=== PATIENT | female | born 1965 | race Caucasian/White ===

== ENCOUNTER → 2017-01-02 | Outpatient (CLI) | payer OTHER ==
[~2017-01-02] MED LIST: B-CO1CAP5 PO; CALCTAB5 PO; CHOL200027 PO; METH500T37 PO; MISCCAP80 PO; MULT-513 PO; MULT-884 PO; NORE1TAB68 PO; NRN/300 PO; [UNRECOGNIZED DRUG - CODE] PO
--- NOTE | 2017-01-02 08:21 | MAMMOGRAPHY REPORT ---
BILATERAL DIGITAL SCREENING MAMMOGRAM TOMOSYNTHESIS WITH CAD: 01/02/2017 CLINICAL HISTORY: Routine screening. TECHNIQUE: Breast tomosynthesis in addition to standard 2D mammography was performed. Current study was also evaluated with a Computer Aided Detection (CAD) system. COMPARISON: Comparison is made to exams dated: 12/29/2015 mammogram, 12/23/2014 mammogram - [facility], 05/29/2013 mammogram, 11/23/2010 mammogram, and 09/26/2009 mammogram. BREAST COMPOSITION: There are scattered areas of fibroglandular density in both breasts. FINDINGS: No suspicious masses, calcifications, or areas of architectural distortion are noted in ei ther breast. There has been no significant interval change compared to prior exams. Scattered bilater al benign-appearing calcifications are not significantly changed. A linear scar marker denotes a sca r on the left superior breast. IMPRESSION: ACR BI-RADS CATEGORY 2: BENIGN There is no mammographic evidence of malignancy. A 1 year screening mammogram is recommended. The pa tient will receive written notification of the results. Approximately 10% of breast cancers are not detected with mammography. A negative mammographic report should not delay biopsy if a clinically suggestive mass is present. Liana Tellez M.D. ah/:01/02/2017 07:50:20 Sander Machine: Umair HILL)(Tracey), [facility] letter sent: Normal 1/2 BI-RADS Code: ACR BI-RADS Category 2: Benign
== END | disposition home or self-care (01) ==
LOC: C.MAMM 07:08
PROVIDERS: ATTEND Internal Medicine
DX: Z12.31 Encounter for screening mammogram for malignant neoplasm of breast (principal)

== ENCOUNTER → 2017-05-29 | Outpatient (CLI) | payer OTHER | END | disposition home or self-care (01) | LOC: C.PAPS 10:36 | PROVIDERS: ATTEND Physician Assistant Medical | DX: Z00.00 Encounter for general adult medical examination without abnormal findings (principal); Z12.4 Encounter for screening for malignant neoplasm of cervix ==

== ENCOUNTER → 2017-05-31 | Outpatient (CLI) | payer OTHER ==
--- NOTE | 2017-05-31 08:53 | DIAGNOSTIC IMAGING REPORT ---
TRANSVAG-FEMALE PELVIS HISTORY: Bleeding. Pelvic pain. VAGINAL BLEEDING COMPARISON: None. FINDINGS: Uterus: 5.4 cm. Small 2 cm fundal uterine fibroid Endometrial stripe: 2 mm Right ovary: Not well seen presumably due to overlying bowel content. Left ovary: Not well seen presumably secondary to overlying bowel content. Miscellaneous:No pelvic free fluid. IMPRESSION: 1. Small uterine fibroid at the fundal aspect of the uterus. 2. This measures 2 cm in maximum dimension. 3. Uterus and endometrium otherwise are unremarkable. 4. Nonvisualization of the ovaries presumably secondary to overlying bowel content. The above report was generated using voice recognition software. It may contain grammatical, syntax or spelling errors. Electronically signed by: Collin Cabrera M.D. 05/31/2017 8:51 AM Dictated Date/Time: 05/31/2017 8:50 AM
== END | disposition home or self-care (01) ==
LOC: C.ULTR 08:05
PROVIDERS: ATTEND Physician Assistant Medical
DX: N93.9 Abnormal uterine and vaginal bleeding, unspecified (principal); D25.9 Leiomyoma of uterus, unspecified

== ENCOUNTER 2017-12-09 08:56 | Emergency (ER) | payer OTHER ==
[~2017-12-09] VITALS: Ht 170.2 cm; Wt 73.9 kg
[2017-12-09 09:13] VITALS: TEMP 36.5; Ht 170.2 cm; Wt 73.9 kg
[2017-12-09] MEDS ORDERED: SODIUM CHLORIDE 0.9% 1000ML 1,000 ML IV STA (09:27)
[2017-12-09 09:55] LABS: BASO % 0.4 %; BASO ABS # 0.02 K/uL (0-0.2); EOS % 4.7 %; EOS ABS # 0.23 K/uL (0-0.5); HEMATOCRIT 40.8 % (37-47); HEMOGLOBIN 14.1 g/dL (12.0-16.0); IG# 0.01 K/uL (0.00-0.02); LYMPH ABS # 2.19 K/uL (1.2-3.4); MEAN CELL VOLUME 89.1 fL (80-100); MEAN CORPUSCULAR HEMOGLOBIN 30.8 pg (25-34); MEAN CORPUSCULAR HGB CONC 34.6 g/dl (32-36); MEAN PLATELET VOLUME 10.9 fL (7.4-10.4); MONO % 6.4 %; MONO ABS # 0.31 K/uL (0.11-0.59); NEUT % 43.3 %; NEUT ABS # 2.11 K/uL (1.4-6.5); PLATELET COUNT 176 K/uL (130-400); RED CELL DISTRIBUTION WIDTH CV 12.6 % (11.5-14.5); RED CELL DISTRIBUTION WIDTH SD 40.5 fL (36.4-46.3); WHITE BLOOD COUNT 4.87 K/uL (4.8-10.8)
--- NOTE | 2017-12-09 10:01 | DIAGNOSTIC IMAGING REPORT ---
SINGLE VIEW CHEST CLINICAL HISTORY: Atypical chest pain. FINDINGS: An AP, portable, upright chest radiograph is compared to chest x-ray and chest CT dated 10/14/2015. The examination is degraded by portable technique and patient rotation. The cardiomediastinal silhouette is unremarkable. The lungs and pleural spaces are clear. No pneumothorax is seen. The bony thorax is grossly intact. IMPRESSION: No active disease in the chest. Electronically signed by: Fracisco Aragon M.D. 12/09/2017 9:59 AM Dictated Date/Time: 12/09/2017 9:59 AM
[2017-12-09 10:23] LABS: ALBUMIN 3.7 gm/dl (3.4-5.0); CALCIUM 8.9 mg/dl (8.5-10.1); CREATININE 0.62 mg/dl (0.60-1.20); POTASSIUM 3.5 mmol/L (3.5-5.1)
[2017-12-09 13:08] VITALS: BP 123/80; PULSE 63; O2SAT 100
--- NOTE | 2017-12-09 16:27 | EMERGENCY ROOM VISIT NOTE ---
ED Visit Note First contact with patient: 09:10 Chief Complaint: My heart is racing. History of Present Illness: Ms. Garsia is a 52 year-old white female who brought into ED via wheelchair accompanied her complaining of palpitations, left-sided chest pressure and hand/finger paresthesias. Historically patient reports she has no history of coronary artery disease and her only risk factor is a family history from her father. Patient reports last night for approximately 2 hours she developed sensations of heart racing. This was after eating [place] food. She reports she checked her Fitbit and her heart rate was 100. At her 's encouragement she took to baby aspirin tablets and went to bed. She reports after waking this morning she once again developed sensations of heart racing and checked her Fitbit but this time her heart rate was in the 50s. Her sensations of heart race was associated with a left-sided chest pressure which radiated into the left shoulder. She does not rate this discomfort because she feels it was not pain. Additionally she reports that once the discomfort started she felt it necessary to take multiple deep breaths because she was having dizziness; she denies true shortness of breath. She also notes on the way to the hospital she developed a tingling and numbness sensation of the hands and fingers. For her symptoms once again she took 2 baby aspirin tablets this morning. She reports her symptoms started approximately 7 AM which was approximately 2 hours before she arrived in the emergency department. On my initial evaluation she reported she had resolution of the need to take deep breaths, lightheadedness, hand/finger paresthesias and chest discomfort, but continued to have mild pressure in the anterior and superior left shoulder area. Patient denies fevers, chills, sweats, skin eruptions, skin color changes, upper respiratory tract symptoms, wheezing, cough, orthopnea, dependent edema, previous clots, claudication, cramping, recent surgery/inactivity/extended travel, abdominal pain, nausea, vomiting, diarrhea, constipation, rectal bleeding, black/tarry stools, urinary symptoms, back/flank pain. Review of Systems: As noted above in history of present illness. All body systems were reviewed and found to be negative as noted above. Past Medical History: Status post tubal ligation and unspecified back surgery. Current Medications: Patient denies. Allergies to Medications: Patient denies. Social History: Patient is currently employed; she feels safe in her home environment; she denies tobacco use and admits to social alcohol use. Physical Examination: Vital Signs: Date Time Temp Pulse Resp B/P (MAP) Pulse Ox O2 Delivery O2 Flow Rate FiO2 12/09/17 13:08 63 17 123/80 100 12/09/17 13:06 60 12/09/17 12:19 55 20 124/65 12/09/17 11:56 62 14 12/09/17 11:26 61 14 12/09/17 10:56 62 12 99 12/09/17 10:26 59 14 99 12/09/17 10:00 67 14 114/65 99 Room Air 67 114/76 68 124/79 12/09/17 09:58 124/79 12/09/17 09:57 114/76 12/09/17 09:56 65 14 99 12/09/17 09:55 114/65 12/09/17 09:38 100/75 12/09/17 09:13 Room Air 12/09/17 09:13 36.5 72 20 144/71 100 Room Air 12/09/17 09:12 72 12/09/17 09:05 144/71 GENERAL: 52-year-old female in mild to moderate distress due to symptoms, nontoxic-appearing, afebrile and hemodynamically stable. NEUROLOGICAL: Awake, alert and oriented to person, place and time. Answering questions appropriately and following commands. Normal gait. Good hand eye coordination. SKIN: Warm, dry and pink. No soft tissue eruptions or trauma noted. HEENT: Atraumatic and normocephalic. PERRLA. Sclera white and conjunctiva pink. Oral cavity moist and pink. Pharynx is nonerythematous or edematous. Speech normal. No lymphadenopathy. Trachea midline. No jugular venous distention. No carotid bruits. BACK: No tenderness over the bony spine. No CVA tenderness. THORAX: Lungs sounds are clear to auscultation and equal bilaterally with symmetrical chest wall. No wheezing, rales or rhonchi. No crepitus, tenderness , subcutaneous air or deformities noted. HEART: Regular rate and rhythm. No gallops, rubs or murmurs are appreciated. No lifts, heaves or thrills. PMI is not displaced. ABDOMEN: Flat, soft and nontender. Positive bowel sounds in all quadrants. No guarding, rigidity or organomegaly. EXTREMITIES: Moves all extremities well on command and with purpose. All distal neurovascular statuses are intact and equal bilaterally. No dependent edema or calf tenderness/cords. ED Course: Patient is assessed as noted above. Patient's medication list was reviewed. Laboratory Testing: Test 12/09/17 09:37 12/09/17 09:40 12/09/17 09:47 12/09/17 12:12 Range/Units White Blood Count 4.87 4.8-10.8 K/uL Red Blood Count 4.58 4.2-5.4 M/uL Hemoglobin 14.1 12.0-16.0 g/dL Hematocrit 40.8 37-47 % Mean Corpuscular Volume 89.1 80-100 fL Mean Corpuscular Hemoglobin 30.8 25-34 pg Mean Corpuscular Hemoglobin Concent 34.6 32-36 g/dl Platelet Count 176 130-400 K/uL Mean Platelet Volume 10.9 7.4-10.4 fL Neutrophils (%) (Auto) 43.3 % Lymphocytes (%) (Auto) 45.0 % Monocytes (%) (Auto) 6.4 % Eosinophils (%) (Auto) 4.7 % Basophils (%) (Auto) 0.4 % Neutrophils # (Auto) 2.11 1.4-6.5 K/uL Lymphocytes # (Auto) 2.19 1.2-3.4 K/uL Monocytes # (Auto) 0.31 0.11-0.59 K/uL Eosinophils # (Auto) 0.23 0-0.5 K/uL Basophils # (Auto) 0.02 0-0.2 K/uL RDW Standard Deviation 40.5 36.4-46.3 fL RDW Coefficient of Variation 12.6 11.5-14.5 % Immature Granulocyte % (Auto) 0.2 % Immature Granulocyte # (Auto) 0.01 0.00-0.02 K/uL Sodium Level 143 136-145 mmol/L Potassium Level 3.5 3.5-5.1 mmol/L Chloride Level 109 98-107 mmol/L Carbon Dioxide Level 28 21-32 mmol/L Anion Gap 5.0 3-11 mmol/L Blood Urea Nitrogen 16 7-18 mg/dl Creatinine 0.62 0.60-1.20 mg/dl Est Creatinine Clear Calc Drug Dose 102.1 ml/min Estimated GFR () 119.3 Estimated GFR (Non- 102.9 BUN/Creatinine Ratio 26.2 10-20 Random Glucose 92 70-99 mg/dl Calcium Level 8.9 8.5-10.1 mg/dl Magnesium Level 2.1 1.8-2.4 mg/dl Total Bilirubin 0.4 0.2-1 mg/dl Direct Bilirubin 0.1 0-0.2 mg/dl Aspartate Amino Transf (AST/SGOT) 17 15-37 U/L Alanine Aminotransferase (ALT/SGPT) 22 12-78 U/L Alkaline Phosphatase 106 45-117 U/L Total Protein 7.0 6.4-8.2 gm/dl Albumin 3.7 3.4-5.0 gm/dl Lipase 239 73-393 U/L Thyroid Stimulating Hormone (TSH) 1.630 0.300-4.500 uIu/ml Urine Opiates Screen NEG NEG Urine Methadone, Qualitative NEG NEG Urine Barbiturates NEG NEG Urine Phencyclidine (PCP) Level NEG NEG Ur Amphetamine/Methamphetamine NEG NEG MDMA (Ecstasy) Screen NEG NEG Urine Benzodiazepines Screen NEG NEG Urine Cocaine Metabolite NEG NEG Urine Marijuana (THC) NEG NEG Bedside D-Dimer 345 0-450 ng/mlFEU Bedside Troponin I < 0.030 < 0.030 0-0.045 ng/ml EKG #1: 9:06 AM was read by myself and reviewed with Dr. Brar and shows normal sinus rhythm with a ventricular rate of 76 bpm. Normal axis, intervals and complexes. She has flattening of her T waves in 2-3 and aVF but when compared to an EKG from September 2015 no acute changes were noted. EKG #2: 12:05 PM was read by myself and reviewed with Dr. Brar; shows normal sinus rhythm with sinus arrhythmia. Normal axis, intervals and complexes. No acute ST changes indicating ischemia, injury or infarction. This is similar to her previous EKG peer Chest X-Rays: Was read by myself and the radiologist showing no acute infiltrates, effusions or pneumothorax. Normal heart silhouette and bony anatomy. No free air under the diaphragm. Patient was hydrated with normal saline. Patient was reassessed multiple times during her stay in the emergency department. Patient's case was reviewed with Dr. Brar; we agreed on diagnostic approach, treatment, disposition and plan. I did review the patient's EKG strips on the computer during her stay in the emergency department. I did note that she had at least 5 unifocal PVCs during her stay. Patient and were educated about today's findings and instructed on her treatment plan; she verbalized understanding and agreement with this plan. Clinical Impression: Palpitations. Left-sided chest discomfort. Decision-Making: Initially my differential diagnosis I considered acute coronary syndrome, thoracic aneurysm, pneumothorax, pneumonia, pulmonary embolism, arrhythmias, electrolyte abnormalities and other causes. Disposition: Patient discharged home in stable condition accompanied by her ; prior to departure she was reassessed and subjectively reported that she was pain and symptom-free. Plan: Patient was encouraged to continue her current medications as prescribed. Patient was encouraged to follow-up with her PCP for recheck and possible Holter monitoring. Patient was encouraged return the ED for worsening symptoms, fevers or any new/ concerning symptoms.
== END 2017-12-09 13:12 | disposition home or self-care (01) ==
LOC: C.EDB 08:59 → C.EDA 13:12
DX: R00.2 Palpitations (principal); R20.2 Paresthesia of skin; R07.9 Chest pain, unspecified; Z82.49 Family history of ischemic heart disease and other diseases of the circulatory system